=== PATIENT | female | born 2005 | race Caucasian/White ===

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

== ENCOUNTER 2024-02-20 11:51 | Emergency (ER) | payer MEDICAID ==
[~2024-02-20] VITALS: Ht 154.9 cm; Wt 49.4 kg
[~2024-02-20 11:51] MED LIST changes: +ACET-9882 PO
[2024-02-20 12:20] VITALS: BP 116/82; PULSE 95; RESP 18; TEMP 99.1; O2SAT 100
[2024-02-20] MEDS: NACL 0.9% 1,000 ML IV ONE (12:46)
[2024-02-20 12:51] LABS: APPEARANCE,URINE CLEAR (CLEAR); BILIRUBIN,URINE NEGATIVE (NEGATIVE); BLOOD, URINE NEGATIVE (NEGATIVE); COLOR,URINE YELLOW (YELLOW); LEUKOCYTE ESTERASE ,URINE NEGATIVE (NEGATIVE); NITRITE, URINE NEGATIVE (NEGATIVE); PH,URINE 6.5 (5.0-9.0); PROTEIN,URINE NEGATIVE (NEGATIVE); UGLUCOSE NEGATIVE (NEGATIVE); UROBILINOGEN,URINE 0.2 EU/dL (0.2 - 1)
[2024-02-20] MEDS: ONDANSETRON 4 MG/2 ML VIAL IVP ONE (13:01)
[2024-02-20] MEDS ORDERED: DOXY1TCP PO (13:53)
[2024-02-20 14:00] VITALS: BP 121/82; PULSE 88; RESP 18; TEMP 98.2; O2SAT 100
== END 2024-02-20 14:00 | disposition home or self-care (01) ==
LOC: MED 11:51
DX: O99.612 Diseases of the digestive system complicating pregnancy, second trimester (principal); R19.7 Diarrhea, unspecified; O26.812 Pregnancy related exhaustion and fatigue, second trimester; R10.13 Epigastric pain; R10.32 Left lower quadrant pain; O21.8 Other vomiting complicating pregnancy; Z3A.16 16 weeks gestation of pregnancy; Z79.1 Long term (current) use of non-steroidal anti-inflammatories (NSAID); Z79.899 Other long term (current) drug therapy
CPT/HCPCS: 81003; 81025; 96361; 96374; 99283; J2405; J7030